=== PATIENT | male | born 1965 | race American Indian/Alaskan Native ===

== ENCOUNTER 2016-08-18 21:14 | Emergency (ER) | payer OTHER, BC ==
[2016-08-18 22:24] LABS: Basophils % (Auto) 0.7 % (0.0-1.8); Eosinophils % (Auto) 1.6 % (0.0-4.3); Hematocrit 41.9 % (35.5-45.6); Hemoglobin 14.1 gm/dl (11.8-15.2); Mean Corpuscular HGB Conc 34 % (32-34); Mean Corpuscular Hemoglobin 29 pg (28-32); Mean Corpuscular Volume 87 fl (84-94); Platelet Count 257 K/mm3 (140-440); Red Blood Count 4.81 M/mm3 (3.65-5.03); Red Cell Distribution Width 13.3 % (13.2-15.2); White Blood Count 6.2 K/mm3 (4.5-11.0)
[2016-08-18 22:33] LABS: Anion Gap 16 mmol/L; Blood Urea Nitrogen 15 mg/dL (9-20); Carbon Dioxide 27 mmol/L (22-30); Chloride 97.3 mmol/L (98-107); Glucose 214 mg/dL (75-100); Potassium 3.9 mmol/L (3.6-5.0); Sodium 136 mmol/L (137-145)
[2016-08-18 22:36] LABS: INR 0.98 (0.87-1.13)
[2016-08-18 22:37] LABS: Partial Thromboplastin Time 31.6 Sec. (24.2-36.6)
[2016-08-18 23:01] LABS: Creatine Kinase MB 1.9 ng/mL (0.0-4.0)
[2016-08-19 00:46] LABS: Bilirubin,Urine NEG (Negative); Blood,Urine NEG (Negative); Ketones,Urine NEG (Negative); Leukocyte Esterase,Urine NEG (Negative); Nitrite,Urine NEG (Negative); Protein,Urine <15 mg/dL mg/dL (Negative); Urobilinogen,Urine < 2.0 mg/dL (<2.0)
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
[2016-08-19 06:31] VITALS: BP 122/76
== END 2016-08-19 06:32 | disposition home or self-care (01) ==
LOC: ED 21:14
DX: J02.9 Acute pharyngitis, unspecified (principal); I10 Essential (primary) hypertension; E11.9 Type 2 diabetes mellitus without complications; G51.0 Bell's palsy
CPT/HCPCS: 36415; 80048; 81001; 82550; 82553; 84484; 85025; 85610; 85730; 87116; 87430; 93005; 93010; 99284

== ENCOUNTER 2017-05-06 17:04 | Emergency (ER) | payer BC ==
--- NOTE | 2017-05-06 19:31 | Emergency Department Report ---
ED General Adult HPI - General Chief complaint: Allergic Reaction Stated complaint: SWELLING IN FACE AND MOUTH Time Seen by Provider: 05/06/17 19:25 Source: patient, RN notes reviewed Mode of arrival: Ambulatory Limitations: No Limitations - History of Present Illness Initial comments: This is a 52-year-old male who was previously unknown to this provider, past medical history includes chronic pain syndrome, diabetes, hypertension, "elevated heart rate." Primary care Dr.: Dr. Ivette Keenan Patient presents to the ER with a complaint of resolved periorbital swelling and left lip swelling. It started earlier on this afternoon. It resolved with 2 tablets of [id number] Benadryl. He has no complaints at this time. He specifically denies headache, neck pain, chest pain, abdominal pain, shortness of breath. He has chronic extremity pain which is not a new, worsening or different. He denies new medications, creams, colognes or other inciting factors. He does describe a past history of angioedema from lisinopril, and is currently on losartan. -: Gradual Location: face, mouth Consistency: now resolved Improves with: medication Worsens with: none Associated Symptoms: denies: confusion, chest pain, cough, diaphoresis, fever/ chills, headaches, loss of appetite, malaise, nausea/vomiting, rash, seizure, shortness of breath, syncope, weakness - Related Data Home Medications Medication Instructions Recorded Confirmed Last Taken Gabapentin 300 mg PO DAILY 08/19/16 08/19/16 Unknown Lisinopril 40 mg PO DAILY 08/19/16 08/19/16 Unknown glyBURIDE 2.5 mg PO BID 08/19/16 08/19/16 Unknown Previous Rx's Medication Instructions Recorded Last Taken Type amLODIPine [Norvasc] 5 mg PO DAILY #30 tab 08/19/16 Unknown Rx EPINEPHrine [Epipen 2-Pino] 0.3 mg IM DAILY PRN #2 ml 05/06/17 Unknown Rx diphenhydrAMINE [Benadryl] 50 mg PO Q8HR PRN #20 capsule 05/06/17 Unknown Rx Allergies Allergy/AdvReac Type Severity Reaction Status Date / Time sulfamethoxazole Allergy Hives Verified 08/18/16 21:56 [From Bactrim] trimethoprim [From Bactrim] Allergy Hives Verified 08/18/16 21:56 ED Review of Systems ROS: Stated complaint: SWELLING IN FACE AND MOUTH Other details as noted in HPI 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 Obesity - Surgical History Past Surgical History?: Yes Additional Surgical History: Rt Knee, lower back, Both Hands, - Social History Smoking Status: Never Smoker Substance Use Type: Alcohol, Prescribed - Medications Home Medications: Home Medications Medication Instructions Recorded Confirmed Last Taken Type Gabapentin 300 mg PO DAILY 08/19/16 08/19/16 Unknown History Lisinopril 40 mg PO DAILY 08/19/16 08/19/16 Unknown History amLODIPine [Norvasc] 5 mg PO DAILY #30 tab 08/19/16 Unknown Rx glyBURIDE 2.5 mg PO BID 08/19/16 08/19/16 Unknown History EPINEPHrine [Epipen 2-Pino] 0.3 mg IM DAILY PRN #2 ml 05/06/17 Unknown Rx diphenhydrAMINE [Benadryl] 50 mg PO Q8HR PRN #20 capsule 05/06/17 Unknown Rx ED Physical Exam - General Limitations: No Limitations General appearance: alert, in no apparent distress - Head Head exam: Present: atraumatic, normocephalic - Eye Eye exam: Present: normal appearance, EOMI. Absent: nystagmus - ENT ENT exam: Present: normal exam, normal orophraynx, mucous membranes moist, TM's normal bilaterally, normal external ear exam, other (there is no obvious swelling. The patient is speaking in full sentences. There is no stridor or dysphonia. There are no intraoral lesions or swelling noted.) - Neck Neck exam: Present: normal inspection, full ROM. Absent: tenderness, meningismus - Respiratory Respiratory exam: Present: normal lung sounds bilaterally. Absent: respiratory distress - Cardiovascular Cardiovascular Exam: Present: regular rate, normal rhythm, normal heart sounds. Absent: systolic murmur, diastolic murmur, rubs, gallop - GI/Abdominal GI/Abdominal exam: Present: soft, normal bowel sounds. Absent: distended, tenderness, guarding, rebound, rigid, pulsatile mass - Rectal Rectal exam: Present: deferred - Extremities Exam Extremities exam: Present: normal inspection, full ROM, normal capillary refill. Absent: calf tenderness - Back Exam Back exam: Present: normal inspection, full ROM. Absent: tenderness, CVA tenderness (R), paraspinal tenderness, vertebral tenderness - Neurological Exam Neurological exam: Present: alert, oriented X3, CN II-XII intact, other ( Extraocular movements intact. Tongue midline. No facial droop. Facial sensation intact to light touch in the V1, V2, V3 distribution bilaterally. 5 and 5 strength in 4 extremities.. Sensation is intact to light touch in 4 extremities.). Absent: motor sensory deficit - Psychiatric Psychiatric exam: Present: normal affect, normal mood - Skin Skin exam: Present: warm, dry, intact, normal color. Absent: rash ED Course Vital Signs 05/06/17 05/06/17 17:16 19:35 Temperature 97.9 F 98.1 F Pulse Rate 114 H 97 H Respiratory 18 18 Rate Blood Pressure 147/95 Blood Pressure 121/81 [Left] O2 Sat by Pulse 99 98 Oximetry ED Medical Decision Making - Lab Data Vital Signs 05/06/17 05/06/17 17:16 19:35 Temperature 97.9 F 98.1 F Pulse Rate 114 H 97 H Respiratory 18 18 Rate Blood Pressure 147/95 Blood Pressure 121/81 [Left] O2 Sat by Pulse 99 98 Oximetry - Medical Decision Making Differential diagnosis, including but not limited to: Angioedema, now resolved, medication side effect Assessment and plan: 52-year-old male with resolved bilateral periorbital swelling. Patient took a self ER cell phone when it happened, I did not appreciate any obvious swelling on the left lip. However the swelling has obviously decreased and stopped on his periorbital region. He has no indication of upper airway compromise at this time, patient is speaking in full sentences, patient has been observed in the ER for almost 3 hours without clinical decompensation, he hasn't required any additional interventions, he is instructed to discontinue his losartan, follow-up with his primary care doctor, he will be discharged with as needed Benadryl and epinephrine pen. Critical care attestation.: If time is entered above; I have spent that time in minutes in the direct care of this critically ill patient, excluding procedure time. ED Disposition Clinical Impression: History of angioedema Disposition: - TO HOME OR SELFCARE Is pt being admited?: No Does the pt Need Aspirin: No Condition: Stable Instructions: Angioedema (ED) Additional Instructions: Discontinue losartan. Follow up with her primary care doctor within the next 7- 10 days to discuss alternative antihypertensive medications. Otherwise, continue current outpatient medications. Use Benadryl as needed and directed, use epinephrine pen as needed/directed. Return to the ER right away with inability to speak, inability to breathe, chest pain, shortness of breath, confusion, projectile vomiting. Prescriptions: diphenhydrAMINE [Benadryl] 50 mg PO Q8HR PRN #20 capsule PRN Reason: Allergic Reaction EPINEPHrine [Epipen 2-Pino] 0.3 mg IM DAILY PRN #2 ml PRN Reason: Allergic Reaction Referrals: KORINA DAVIS MD [Staff Physician] - 3-5 Days
[2017-05-06 19:36] VITALS: BP 121/81
== END 2017-05-06 21:27 | disposition home or self-care (01) ==
LOC: ED 17:04
DX: T78.3XXA Angioneurotic edema, initial encounter (principal); E11.9 Type 2 diabetes mellitus without complications; I10 Essential (primary) hypertension; G51.0 Bell's palsy
CPT/HCPCS: 82962; 99282